=== PATIENT | male | born 1980 | race American Indian/Alaskan Native ===

== ENCOUNTER 2016-10-29 19:35 | Emergency (ER) | payer OTHER ==
[2016-10-29 20:18] VITALS: BP 124/78
--- NOTE | 2016-10-29 20:40 | Emergency Department Report ---
ED Rash HPI - HPI Chief Complaint: Skin Rash Stated Complaint: BILATERAL FOOT RASH Time Seen by Provider: 10/29/16 20:33 Duration: 1 month Location: Lower Extremities (feet rash and itching) Suspected Cause: Unknown Rash Symptoms: Yes Itching (feet), Yes Peeling (feet), No Facial Swelling, No Tongue/Oral Swelling, No Breathing Difficulties, No Choking Sensation, No Wheezing/Dyspnea, No Blistering, No Fever, No Lightheaded, No Malaise, No Myalgias Severity: moderate Other History: Patient he reports that he has a rash and itching between his toes on his feet 1 month. He said he has an odor to his feet. Denies any fever or chills. Denies any injury. Denies any nausea or vomiting. He is having pain which feels sore /10. Denies any numbness or tingling to extremities. No [id number] medication use. Immunizations up-to-date per patient. Denies any coughing, wheezing, stridor or difficulty swallowing. ED Review of Systems ROS: Stated complaint: BILATERAL FOOT RASH Other details as noted in HPI Comment: All other systems reviewed and negative Constitutional: denies: chills, fever ENT: denies: throat pain Respiratory: no symptoms reported Cardiovascular: denies: chest pain, palpitations, edema, syncope Gastrointestinal: denies: nausea, vomiting Musculoskeletal: arthralgia. denies: back pain, myalgia Skin: rash, pruritus Neurological: denies: headache, numbness, paresthesias, confusion, abnormal gait , vertigo ED Past Medical Hx - Past Medical History Previous Medical History?: No Hx COPD: No - Surgical History Past Surgical History?: No - Family History Family history: no significant - Social History Smoking Status: Current Every Day Smoker Substance Use Type: None Other Social History: single and lives with family - Medications Home Medications: Home Medications Medication Instructions Recorded Confirmed Last Taken Type Cyclobenzaprine [Flexeril 10 MG 10 mg PO TID PRN #15 tablet 10/24/14 Unknown Rx TAB] traMADol [Ultram 50 MG tab] 50 mg PO Q6HR PRN #21 tablet 10/24/14 Unknown Rx Griseofulvin, Microsize [Grifulvin 500 mg PO BID #56 tablet 04/04/15 Unknown Rx V] hydrOXYzine PAMOATE [Vistaril] 25 mg PO Q6HR PRN #30 capsule 04/04/15 Unknown Rx Econazole 1% [Spectazole] 10 applic TP BID #1 tube 10/29/16 Unknown Rx Rash Exam - Exam General: Vital signs noted. No distress. Alert and acting appropriately. This is a 36-year-old male well-nourished well-developed in no acute distress. HEENT: No Periorbital Edema, No Conjuctival Injection, No Chemosis, No Perioral Edema, No Tongue Edema, No Uvular Edema, No Compromised Airway, No Drooling Lungs: Yes Good Air Exchange, No Wheezes, No Ronchi, No Stridor, No Cough, No Labored Respirations, No Retractions, No Use of Accessory Muscles, No Other Abnormal Lung Sounds Heart: Yes Regular, No Murmur Skin: Yes Erythema (between toes, mild), Yes Other (patient with peeling and crack in between toes in both feet. Moistness noted between toes. Anterior feet dry and scaly . Nontender to palpate.), No Urticarial Rash, No Maculopapular Rash, No Morbilliform rash, No Bulla(e), No Excoriations, No Weeping, No Tenderness, No Edema, No Encrustations Other: Positive: Abdomen Normal, Neurologic Normal, Musculoskeletal Normal ED Course Vital Signs 10/29/16 20:13 Temperature 98.5 F Pulse Rate 64 Respiratory 20 Rate Blood Pressure 124/78 Blood Pressure 124/78 [Left] O2 Sat by Pulse 100 Oximetry - Reevaluation(s) Reevaluation #1: 10/29/16 20:46 Pt had uneventful stay. ED Medical Decision Making - Medical Decision Making ED course: Pt here complaining of peeling in, rash and itching in the feet with odor ongoing 1 month. Physical findings for tinea pedis. I discussed the patient's diagnosis and treatment plan and eats in agreement. Started him that he needs to keep his feet dry and clean. I also discussed with him that he should follow-up with a aerospace project manager for further management of tinea pedis if topical cream does not work. Patient given prescription for Econazole and to apply twice daily. Patient was treated for Tinea pedis with Griseofulvin on . Critical care attestation.: If time is entered above; I have spent that time in minutes in the direct care of this critically ill patient, excluding procedure time. ED Disposition Clinical Impression: Tinea pedis of both feet, Pruritic dermatitis Disposition: DC- TO HOME OR SELFCARE Is pt being admited?: No Does the pt Need Aspirin: No Condition: Stable Instructions: Tinea Pedis (ED), Itchy Skin (ED) Additional Instructions: Please follow-up with foot doctor for tinea pedis off your feet. Apply antifungal cream to feet and between toes twice daily Try to keep ear feet dry and clean. He do not have a primary care physician, he can follow-up at [facility] Prescriptions: Econazole 1% [Spectazole] 10 applic TP BID #1 tube Referrals: [facility] [Outside] - 3-5 Days HAO CARVAJAL DPM [Staff Physician] - 3-5 Days Forms: Work/School Release Form(ED)
== END 2016-10-29 21:15 | disposition home or self-care (01) ==
LOC: ED 19:35
DX: L30.8 Other specified dermatitis (principal); B35.3 Tinea pedis; F17.210 Nicotine dependence, cigarettes, uncomplicated
CPT/HCPCS: 99282